=== PATIENT | female | born 1975 | race Caucasian/White ===

== ENCOUNTER 2020-10-18 01:55 | Emergency (ER) | payer OTHER ==
[~2020-10-18] VITALS: Ht 160 cm; Wt 59.0 kg
[2020-10-18] MEDS ORDERED: LISINOPRIL10 MG (02:27)
[2020-10-18] MEDS ORDERED: WELLBUTRIN SR100 MG (02:28)
[2020-10-18] MEDS ORDERED: BUSPIRONE HCL5 MG (02:28)
[2020-10-18] MEDS ORDERED: ATIVAN1 MG PO (06:40)
[2020-10-18] MEDS ORDERED: ONDANSETRON ODT8 MG PO (06:40)
--- NOTE | 2020-10-19 09:36 | EKG ---
[facility] [address] [facility] [place] [address] Signed Unusual P axis, possible ectopic atrial rhythm Septal infarct , age undetermined Abnormal ECG No previous ECGs available Confirmed by TONI VÁZQUEZ MD ([id number]) on 10/19/2020 9:36:33 AM Electronically Signed By: TONI VÁZQUEZ MD 10/19/20 0936 PATIENT NAME: SARAH SAHU Electrocardiogram DATE OF : 79 PHYSICIAN: TONI VÁZQUEZ MD REPORT #: [id number] REPORT IS CONFIDENTIAL AND NOT TO BE RELEASED WITHOUT AUTHORIZATION
== END 2020-10-18 10:50 | disposition home or self-care (01) ==
LOC: ED 01:55
DX: F10.239 Alcohol dependence with withdrawal, unspecified (principal); Y90.0 Blood alcohol level of less than 20 mg/100 ml; I10 Essential (primary) hypertension; F17.200 Nicotine dependence, unspecified, uncomplicated; Z91.013 Allergy to seafood; Z79.899 Other long term (current) drug therapy
CPT/HCPCS: 80053; 81001; 84132; 85025; 87077; 87088; 87186; 93005; 93010; 96374; 96375; 96376; 99285-25; C9113; J1815; J1940; J2060; J2405; J7030

== ENCOUNTER 2020-11-25 11:12 | Emergency (ER) | payer OTHER ==
[~2020-11-25] VITALS: Ht 160 cm; Wt 59.0 kg
[~2020-11-25 11:12] MED LIST: ATIVAN1 MG PO; BUSPIRONE HCL5 MG; LISINOPRIL10 MG; ONDANSETRON ODT8 MG PO; WELLBUTRIN SR100 MG
== END 2020-11-26 12:33 | disposition home or self-care (01) ==
LOC: ED 11:12
DX: R45.851 Suicidal ideations (principal); F10.20 Alcohol dependence, uncomplicated; Y90.6 Blood alcohol level of 120-199 mg/100 ml; I10 Essential (primary) hypertension; Z91.030 Bee allergy status; Z79.899 Other long term (current) drug therapy
CPT/HCPCS: 80053; 81001; 84443; 84703; 85025; 99284; A9270-GY; G0480

== ENCOUNTER 2020-12-24 09:14 | Emergency (ER) | payer OTHER ==
[~2020-12-24] VITALS: Ht 160 cm; Wt 59.0 kg
--- OUTSIDE RECORDS SUMMARY | 2020-12-24 09:16 | XMS ---
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 Kimberli VISIT COUNT (12 MO.) 1 [facility] Milli Moya [address] [place] [address] TOTAL 4 NOTE: Visits indicate total known visits. ED/UCC VISIT TRACKING (12 MO.) 12/24/2020 09:14 [facility] TYPE: Emergency COMPLAINT: - INTOXICATION 12/20/2020 04:44 [facility] TYPE: Emergency DIAGNOSES: - rt hand inj - Finger Deformity - Unspecified dislocation of unspecified finger, initial encounter - Finger Injury 11/25/2020 11:12 [facility] [place] TYPE: Emergency COMPLAINT: - MEDICAL CLEARANCE DIAGNOSES: - Suicidal ideations - Alcohol dependence, uncomplicated - Essential (primary) hypertension - Other prison (current) drug therapy - Bee allergy status - Blood alcohol level of 120-199 mg/100 ml 10/18/2020 01:56 [facility] [place] TYPE: Emergency COMPLAINT: - WITHDRAWAL DIAGNOSES: - Alcohol dependence with withdrawal, unspecified - Other prison (current) drug therapy - Nicotine dependence, unspecified, uncomplicated - Essential (primary) hypertension - Allergy to seafood - Blood alcohol level of less than 20 mg/100 ml INPATIENT VISIT TRACKING (12 MO.) No inpatient visits to display in this time frame [email or web address]
[2020-12-24] MEDS ORDERED: ACYCLOVIR800 MG PO (09:23)
== END 2020-12-24 22:07 | disposition home or self-care (01) ==
LOC: ED 09:14
DX: F10.129 Alcohol abuse with intoxication, unspecified (principal); Y90.8 Blood alcohol level of 240 mg/100 ml or more; R45.851 Suicidal ideations; I10 Essential (primary) hypertension; F17.200 Nicotine dependence, unspecified, uncomplicated; Z91.013 Allergy to seafood; Z79.899 Other long term (current) drug therapy
CPT/HCPCS: 70450; 70486; 80053; 81001; 84443; 84703; 85025; 96372; 99285-25; G0480; J1630; J2060

== ENCOUNTER 2021-03-20 02:05 | Emergency (ER) | payer OTHER ==
[~2021-03-20] VITALS: Ht 160 cm; Wt 59.0 kg
[~2021-03-20 02:05] MED LIST changes: +ACYCLOVIR800 MG PO
== END 2021-03-20 12:21 | disposition home or self-care (01) ==
LOC: ED 02:05
DX: R45.851 Suicidal ideations (principal); F10.10 Alcohol abuse, uncomplicated; Y90.6 Blood alcohol level of 120-199 mg/100 ml; I10 Essential (primary) hypertension; F17.200 Nicotine dependence, unspecified, uncomplicated; Z91.013 Allergy to seafood; Z79.899 Other long term (current) drug therapy
CPT/HCPCS: 80053; 81001; 84443; 84703; 85025; 96372; 99285; A9270; A9270-GY; G0480; J2550

== ENCOUNTER 2021-04-11 01:19 | Emergency (ER) | payer OTHER ==
[~2021-04-11] VITALS: Ht 160 cm; Wt 59.0 kg
--- OUTSIDE RECORDS SUMMARY | 2021-04-11 01:22 | XMS ---
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 Kimberli VISIT COUNT (12 MO.) [address] [place], [place] [address] TOTAL 6 NOTE: Visits indicate total known visits. ED/UCC VISIT TRACKING (12 MO.) 04/11/2021 01:20 [facility] [place] TYPE: Emergency COMPLAINT: - ALCOHOL INTOXICATION 03/20/2021 02:06 [facility] [place] TYPE: Emergency COMPLAINT: - MEDICAL CLEARANCE DIAGNOSES: - Essential (primary) hypertension - Other nursing home (current) drug therapy - Alcohol abuse, uncomplicated - Nicotine dependence, unspecified, uncomplicated - Suicidal ideations - Blood alcohol level of 120-199 mg/100 ml - Allergy to seafood 12/24/2020 09:14 [facility] TYPE: Emergency COMPLAINT: - INTOXICATION DIAGNOSES: - Nicotine dependence, unspecified, uncomplicated - Suicidal ideations - Essential (primary) hypertension - Alcohol abuse with intoxication, unspecified - Allergy to seafood - Blood alcohol level of 240 mg/100 ml or more - Suicidal ideations - 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 [place] TYPE: Emergency COMPLAINT: - WITHDRAWAL DIAGNOSES: - Alcohol dependence with withdrawal, unspecified - Other nursing home (current) drug therapy - Nicotine dependence, unspecified, uncomplicated - Essential (primary) hypertension - Allergy to seafood - Blood alcohol level of less than 20 mg/100 ml INPATIENT VISIT TRACKING (12 MO.) No inpatient visits to display in this time frame [email or web address]
--- NOTE | 2021-04-12 19:07 | EKG ---
[facility] [address] [facility] [place] [address] Signed Accelerated Junctional rhythm Septal infarct (cited on or before 18-OCT-2020) Abnormal ECG When compared with ECG of 18-OCT-2020 02:44, Junctional rhythm has replaced Ectopic atrial rhythm Confirmed by MARTA CHAN MD ([id number]) on 04/12/2021 7:07:38 PM Electronically Signed By: MARTA CHAN MD 04/12/21 1907 PATIENT NAME: SARAH SAHU Electrocardiogram DATE OF : 79 PHYSICIAN: MARTA CHAN MD REPORT #: [id number] REPORT IS CONFIDENTIAL AND NOT TO BE RELEASED WITHOUT AUTHORIZATION
== END 2021-04-12 20:04 | disposition home or self-care (01) ==
LOC: ED 01:19
DX: F10.129 Alcohol abuse with intoxication, unspecified (principal); R45.851 Suicidal ideations; I10 Essential (primary) hypertension; F17.200 Nicotine dependence, unspecified, uncomplicated; Z90.710 Acquired absence of both cervix and uterus; Z90.89 Acquired absence of other organs; Z91.013 Allergy to seafood; Z79.899 Other long term (current) drug therapy
CPT/HCPCS: 51701; 80053; 84703; 85025; 93005; 93010; 99285-25; A9270-GY; C9803; G0480; J1630; J2060; J3486; U0003

== ENCOUNTER 2024-05-15 23:07 | Emergency (ER) | payer OTHER ==
[~2024-05-15] VITALS: Ht 160 cm; Wt 70.5 kg
[2024-05-15] MEDS ORDERED: AMPHETAMINE SAL20 MG PO (23:19)
[2024-05-15] MEDS ORDERED: DIPHTH,PERTUSS(ACELL),TET VAC 0.5 ML SYRINGE IM ONE (23:30)
[2024-05-15] MEDS ORDERED: MULTIVITAMINS 10 ML,FOLIC ACID 1 MG,THIAMINE HCL 100 MG in SODIUM CHLORIDE 0.9% 1,000 ML IV ONE (23:45)
[2024-05-15] MEDS ORDERED: FOLIC ACID 1 MG/0.2 ML ML ONE (23:48)
[2024-05-16] MEDS ORDERED: ACETAMINOPHEN 500 MG TAB PO ONE (00:45)
[2024-05-16 01:17] VITALS: BP 148/97
== END 2024-05-16 01:26 | disposition other institution, planned readmission (95) ==
LOC: ED 23:07
DX: M54.2 Cervicalgia (principal); M79.631 Pain in right forearm; I10 Essential (primary) hypertension; F17.200 Nicotine dependence, unspecified, uncomplicated; Z91.013 Allergy to seafood; Z79.899 Other long term (current) drug therapy; V48.5XXA Car driver injured in noncollision transport accident in traffic accident, initial encounter
CPT/HCPCS: 70450; 70486; 71260; 72125; 74177; 80053; 80307; 82553; 83690; 84702; 85025; 86850; 86900; 86901; 90471; 90715; 99284-25; G0480; J3411; J7030; Q9967